=== PATIENT | male | born 1975 | race Caucasian/White ===

== ENCOUNTER → 2017-01-03 | Outpatient (REF) | payer BC ==
[~2017-01-03] MED LIST: ADV250INH INH; ALLE180T33 PO; CYMB60CA3 PO; NASA1SPR
[2017-01-03 12:39] LABS: BASO % 0.7 % (0.0-1.0); EOS # 0.1 K/mm3 (0.0-0.50); EOS % 2.5 % (0.0-3.0); LARGE UNSTAINED CELL # 0.1 K/mm3 (0.0-0.4); LARGE UNSTAINED CELL % 2.7 % (0.0-4.0); LYMPH # 2.3 K/mm3 (1.5-4.5); LYMPH % 40.7 % (24.0-44.0); MEAN CORPUSCULAR HEMOGLOBIN 30.1 pg (27.0-33.0); MEAN CORPUSCULAR HGB CONC 35.9 g/dl (32.0-36.5); MEAN CORPUSCULAR VOLUME 83.8 fl (80.0-96.0); MONO # 0.3 K/mm3 (0.0-0.8); MONO % 6.5 % (0.0-5.0); NEUTROPHILS # 2.4 K/mm3 (1.8-7.7); NEUTROPHILS % 47.1 % (36.0-66.0); PLATELET COUNT, AUTOMATED 152 k/mm3 (150-450); RED CELL DISTRIBUTION WIDTH 12.9 % (11.5-14.5); WHITE BLOOD COUNT 5.2 K/mm3 (4.0-10.0)
[2017-01-03 13:03] LABS: FREE T4 0.93 NG/DL (0.76-1.46)
== END ==
LOC: M LABDRAWP 11:26
PROVIDERS: ATTEND Family Medicine
DX: R53.83 Other fatigue (principal)

== ENCOUNTER 2017-01-14 11:22 | Emergency (ER) | payer BC ==
[~2017-01-14] VITALS: Ht 185.4 cm; Wt 88.6 kg
[2017-01-14] MEDS ORDERED: NASA1SPR (11:31)
[2017-01-14] MEDS ORDERED: CYMB60CA3 PO (11:31)
[2017-01-14] MEDS ORDERED: ALLE180T33 PO (11:31)
[2017-01-14] MEDS ORDERED: ADV250INH INH (11:31)
[2017-01-14] MEDS ORDERED: NS 1,000 ML IV ONE ×2 (12:00→13:30)
[2017-01-14 14:13] VITALS: BP 148/85
--- NOTE | 2017-01-14 20:29 | ECGEPIP ---
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
== END 2017-01-14 14:26 | disposition home or self-care (01) ==
LOC: M ED 11:22
DX: E86.0 Dehydration (principal); R53.83 Other fatigue; J45.909 Unspecified asthma, uncomplicated; Z79.899 Other long term (current) drug therapy; Z88.2 Allergy status to sulfonamides

== ENCOUNTER → 2017-11-22 | Outpatient (REF) | payer BC ==
[2017-11-22 17:10] LABS: ALBUMIN 4.2 GM/DL (3.2-5.2); ALBUMIN/GLOBULIN RATIO 1.45 (1.00-1.93); ALKALINE PHOSPHATASE 62 U/L (45-117); ALT/SGPT 71 U/L (12-78); ANION GAP 8 MEQ/L (8-16); AST/SGOT 34 U/L (7-37); BILIRUBIN,TOTAL 0.6 MG/DL (0.2-1.0); BLOOD UREA NITROGEN 17 MG/DL (7-18); C REACTIVE PROTEIN QUANTITATIV < 0.30 MG/DL (0.00-0.30); CALCIUM LEVEL 9.1 MG/DL (8.5-10.1); CARBON DIOXIDE LEVEL 30 MEQ/L (21-32); CHLORIDE LEVEL 108 MEQ/L (98-107); GLOMERULAR FILTRATION RATE > 60.0 (>60); GLUCOSE, FASTING 62 MG/DL (70-100); POTASSIUM SERUM 4.3 MEQ/L (3.5-5.1); RHEUMATOID FACTOR QUANT < 10.0 IU/ML (<15.0); SODIUM LEVEL 146 MEQ/L (136-145); TOTAL PROTEIN 7.1 GM/DL (6.4-8.2)
[2017-11-22 18:29] LABS: BASO % 0.6 % (0.0-1.0); EOS # 0.2 10^3/uL (0.0-0.50); HEMATOCRIT 45.3 % (42.0-52.0); HEMOGLOBIN 15.5 g/dl (13.5-17.5); IMMATURE GRANULOCYTE % 0.2 % (0-3.0); LYMPH # 1.9 10^3/uL (1.5-4.5); LYMPH % 37.6 % (24.0-44.0); MEAN CORPUSCULAR HEMOGLOBIN 29.5 pg (27.0-33.0); MEAN CORPUSCULAR HGB CONC 34.2 g/dl (32.0-36.5); MEAN CORPUSCULAR VOLUME 86.1 fl (80.0-96.0); MONO # 0.5 10^3/uL (0.0-0.8); NEUTROPHILS # 2.4 10^3/uL (1.8-7.7); NEUTROPHILS % 48.6 % (36.0-66.0); PLATELET COUNT, AUTOMATED 165 10^3/uL (150-450); RED BLOOD COUNT 5.26 10^6/uL (4.30-6.10); RED CELL DISTRIBUTION WIDTH 12.9 % (11.5-14.5)
[2017-11-22 19:56] LABS: ERYTHROCYTE SEDIMENTATION RATE 1 mm/hr (0-15)
[2017-11-26 00:07] LABS: ANTINUCLEAR ANTIBODIES DIRECT Negative (Negative); Lyme Disease IgG/IgM Antibodie <0.91 ISR (0.00-0.90); Lyme Disease IgM Ab Quantitati <0.80 index (0.00-0.79)
== END ==
LOC: M SFHCLERA 10:52
DX: M19.90 Unspecified osteoarthritis, unspecified site (principal)
CPT/HCPCS: 80053

== ENCOUNTER → 2018-04-12 | Outpatient (CLI) | payer BC | LOC: M SLEEP 20:00 | DX: R06.83 Snoring (principal); R40.0 Somnolence | CPT/HCPCS: 95810 ==

== ENCOUNTER → 2018-08-29 | Outpatient (REF) | payer BC | LOC: M SFHCLERA 16:11 | PROVIDERS: ATTEND Family Medicine | DX: D22.61 Melanocytic nevi of right upper limb, including shoulder (principal) ==

== ENCOUNTER → 2019-01-23 | Outpatient (REF) | payer BC ==
[2019-01-23 12:05] LABS: BLOOD UREA NITROGEN 12 MG/DL (7-18); CALCIUM LEVEL 9.2 MG/DL (8.5-10.1); CARBON DIOXIDE LEVEL 33 MEQ/L (21-32); CHLORIDE LEVEL 106 MEQ/L (98-107); CHOLESTEROL LEVEL 216 MG/DL (<200); CREATININE FOR GFR 1.01 MG/DL (0.70-1.30); GLOMERULAR FILTRATION RATE > 60.0 (>60); GLUCOSE, FASTING 88 MG/DL (70-100); HDL CHOLESTEROL 40 MG/DL (>40); LDL CHOLESTEROL 124 MG/DL (<100); NON-HDL-C 176 MG/DL; POTASSIUM SERUM 4.1 MEQ/L (3.5-5.1); SODIUM LEVEL 139 MEQ/L (136-145); TRIGLYCERIDES LEVEL 260 MG/DL (<150)
== END ==
LOC: M SFHCLERA 09:46
PROVIDERS: ATTEND Family Medicine
DX: Z00.00 Encounter for general adult medical examination without abnormal findings (principal)